=== PATIENT | male | born 1935 | race Caucasian/White ===

== ENCOUNTER → 2017-06-11 | Outpatient (CLI) | payer OTHER | LOC: BHLMT 13:30 | PROVIDERS: ATTEND Internal Medicine Cardiovascular Disease | DX: R07.9 Chest pain, unspecified (principal); I25.10 Atherosclerotic heart disease of native coronary artery without angina pectoris; R06.02 Shortness of breath | CPT/HCPCS: 78452; 93017; A9500; J2785 ==

== ENCOUNTER 2018-03-11 07:57 | Day surgery (SDC) | payer OTHER ==
[2018-03-11] MEDS ORDERED: NS 1,000 ML IV ONE (08:04)
[2018-03-11] MEDS ORDERED: FAMOTIDINE 20 MG TAB PO ONE (08:04)
[2018-03-11] MEDS ORDERED: ASPIRIN EC 325 MG TAB PO ONE ×2 (08:04→08:35)
[2018-03-11] MEDS ORDERED: diphenhydrAMINE 25 MG CAP PO ONE ×2 (08:04→08:35)
[2018-03-11] MEDS ORDERED: DIAZEPAM 5 MG TAB PO ONE (08:04)
[2018-03-11] MEDS ORDERED: FAMOTIDINE 20 MG TAB ONE (08:35)
[2018-03-11 08:40] LABS: PLATELET COUNT 259 10^3/uL (150-400)
[2018-03-11 08:52] LABS: INR 1.06 (0.83-1.16)
[2018-03-11] MEDS ORDERED: fentaNYL 100 MCG/2 ML INJ ONE (08:55)
[2018-03-11] MEDS ORDERED: LIDOCAINE 1% 300 MG/30 ML SDV ONE (08:55)
[2018-03-11] MEDS ORDERED: IOPAMIDOL (ISOVUE-370) 150 ML BTL IV ONE (08:56)
[2018-03-11] MEDS ORDERED: MIDAZOLAM 2 MG/2 ML VIAL ONE (08:56)
[2018-03-11] MEDS ORDERED: VERAPAMIL 5 MG/2 ML VIAL ONE (08:56)
[2018-03-11] MEDS ORDERED: HEPARIN 10,000 UNIT/10 ML MDV (1,000 UNIT/ML) ONE (08:56)
--- NOTE | 2018-03-11 09:07 | PDPROPOC ---
Sedation Plan of Care Sedation Plan of Care: vital signs stable, mental status noted, patient educated of risks, benefits, alternatives, patient can tolerate sedation ASA Classification: ASA 2 Planned drugs: fentanyl, midazolam Mallampati Score: Class 1 Mallampati Reference Image: Patient passed 3-3-2 rule?: Yes
--- NOTE | 2018-03-11 09:07 | PDHPUP ---
History & Physical Update H&P update statement: This history and physical update is based on an assessment of the patient which was completed after admission or registration (within 24 hours), but prior to the surgery/procedure. H&P update: H&P reviewed & patient examined, no change in patient's condition since H&P completed H&P changes: 2 episodes of chest pain, most recent two weeks ago.
[2018-03-11] MEDS ORDERED: methylPREDNISolone SOD SUCC 125 MG/2 ML VIAL ONE (09:16)
[2018-03-11] MEDS ORDERED: ADENOSINE 90 MG/30 ML VIAL IV ONE ×2 (09:54→09:55)
[2018-03-11] MEDS ORDERED: ATROPINE SULFATE 1 MG/10 ML SYR IVP PRN (10:21)
[2018-03-11] MEDS ORDERED: NITROGLYCERIN 0.4 MG BTL SL PRN (10:21)
--- NOTE | 2018-03-11 10:25 | PDDXCAT ---
Diagnostic Cath Note - . Date: 03/11/18 [place]dust Drier: Georgi Indication: other (Known CAD with 70% RCA, 50% LAD. chest pain, negative ett) - Procedure Access: right wrist Procedure: left heart catheterization, coronary angiography, left ventriculogram - Materials Left Heart Cath size: 5F Left Heart Cath materials: JL3.5, JR4.0, pigtail - Findings-Left Heart Catheterization LM: Unobstructed. LAD: 50% MID lad stenosis involving principle diaganol. LCX: large vessel with minimal luminal irregularities. RCA: Dominant: normal EDP: 15 mmhg LVEF: 72 Wall motion: normal Complications: none Estimated blood loss: <50ml Closure method: TR Band Assessment: 50% Mid LAD stenosis. Normal LV systolic function. Plan: Indeterminate LAD stenosis. FFR assessment. Intervention: After reviewing diagnostic angiograms, it was elected to proceed with measurement of FFR for indeterminate LAD lesion. Therapeutic ACT was confirmed. Using a 5 tajik JL3.5 guide, LM was engaged. A FFR wire was calibrated and used to cross the LAD stenosis. Resting measurment was .92. Indeterminate. Patient was administered 140 ug/kg/min adenosine. FFR 0.83. The wire was withdrawn. Conclusion: Moderate LAD stenosis. Recommend continued medical therapy. Patient Problems: Problems Problem Status Onset Essential hypertension Active Generalized anxiety disorder Active Neuropathy Active Insomnia Active
--- NOTE | 2018-03-11 16:54 | CPEKG ---
Test Reason : OPEN Blood Pressure : / mmHG Vent. Rate : 089 BPM Atrial Rate : 090 BPM P-R Int : 156 ms QRS Dur : 143 ms QT Int : 373 ms P-R-T Axes : 083 070 -08 degrees QTc Int : 454 ms Sinus rhythm Right bundle branch block Confirmed by Polina Machado ([id number]) on 03/11/2018 4:54:11 PM Referred By: Confirmed By:Polina Machado
== END 2018-03-11 13:45 | disposition home or self-care (01) ==
LOC: FCATH 07:57
PROVIDERS: ATTEND Internal Medicine Interventional Cardiology
PROC: B2111ZZ Fluoroscopy of Multiple Coronary Arteries using Low Osmolar Contrast (ICD-10-PCS; principal; 2018-03-11)
PROC: 4A023N7 Measurement of Cardiac Sampling and Pressure, Left Heart, Percutaneous Approach (ICD-10-PCS; principal; 2018-03-11)
PROC: B2151ZZ Fluoroscopy of Left Heart using Low Osmolar Contrast (ICD-10-PCS; principal; 2018-03-11)
DX: I25.10 Atherosclerotic heart disease of native coronary artery without angina pectoris (principal); R07.89 Other chest pain; I77.9 Disorder of arteries and arterioles, unspecified; E78.00 Pure hypercholesterolemia, unspecified
CPT/HCPCS: 93005; 93458; 93571; C1769; C1887; J0153; J1200; J1644; J2250; J2930; J3010; Q9967